=== PATIENT | male | born 1930 | race Caucasian/White ===

== ENCOUNTER 2022-01-08 11:05 | Emergency (ER) | payer MEDICARE, BC ==
[2022-01-08 11:31] VITALS: RESP 16
--- NOTE | 2022-01-08 11:32 | ED ---
General Adult HPI - General Stated complaint: Abnormal Labs Time Seen by Provider: 01/08/22 11:09 Source: patient, RN notes reviewed Mode of arrival: ambulatory Limitations: no limitations - History of Present Illness Initial comments: 89-year-old male present emergency department for evaluation of hyperkalemia. Patient was having routine labs. Patient states he is asymptomatic he has no complaints. Patient is here for further evaluation. - Related Data Allergies Allergy/AdvReac Type Severity Reaction Status Date / Time No Known Allergies Allergy Verified 01/08/22 11:31 Review of Systems ROS Statement: Those systems with pertinent positive or pertinent negative responses have been documented in the HPI. ROS Other: All systems not noted in ROS Statement are negative. General Exam Limitations: no limitations General appearance: alert, in no apparent distress Head exam: Present: atraumatic, normocephalic, normal inspection Respiratory exam: Present: normal lung sounds bilaterally. Absent: respiratory distress, wheezes, rales, rhonchi, stridor Cardiovascular Exam: Present: regular rate, normal rhythm, normal heart sounds. Absent: systolic murmur, diastolic murmur, rubs, gallop, clicks Course Vital Signs 01/08/22 11:27 Temperature 98.2 F Pulse Rate 80 Respiratory 16 Rate Blood Pressure 105/72 O2 Sat by Pulse 98 Oximetry Medical Decision Making - Medical Decision Making Repeat labs reveal any evidence of hyperkalemia. Patient discharged in stable condition return parameters were discussed. - Lab Data Result diagrams: 01/08/22 12:44 01/08/22 12:44 Lab Results 01/08/22 01/08/22 Range/Units 12:44 12:44 WBC 7.4 (3.8-10.6) k/uL RBC 4.22 L (4.30-5.90) m/uL Hgb 13.4 (13.0-17.5) gm/dL Hct 42.6 (39.0-53.0) % MCV 101.1 H (80.0-100.0) fL MCH 31.9 (25.0-35.0) pg MCHC 31.5 (31.0-37.0) g/dL RDW 13.8 (11.5-15.5) % Plt Count 170 (150-450) k/uL MPV 7.7 Macrocytosis Slight Sodium 137 (137-145) mmol/L Potassium 4.9 (3.5-5.1) mmol/L Chloride 104 (98-107) mmol/L Carbon Dioxide 23 (22-30) mmol/L Anion Gap 10 mmol/L BUN 47 H (9-20) mg/dL Creatinine 1.81 H (0.66-1.25) mg/dL Est GFR (CKD-EPI)AfAm 38 (>60 ml/min/1.73 sqM) Est GFR (CKD-EPI)NonAf 32 (>60 ml/min/1.73 sqM) Glucose 128 H (74-99) mg/dL Calcium 8.6 (8.4-10.2) mg/dL Magnesium 2.2 (1.6-2.3) mg/dL Total Bilirubin 0.9 (0.2-1.3) mg/dL AST 35 (17-59) U/L ALT 39 (4-49) U/L Alkaline Phosphatase 70 (38-126) U/L Total Protein 6.8 (6.3-8.2) g/dL Albumin 4.6 (3.5-5.0) g/dL Disposition Clinical Impression: Encounter for laboratory test Disposition: HOME SELF-CARE Condition: Stable Additional Instructions: Please return to the Emergency Department if symptoms worsen or any other concerns. Is patient prescribed a controlled substance at d/c from ED?: No Referrals: Nella Garcia DO [Primary Care Provider] - 1-2 days Time of Disposition: 13:28
[2022-01-08 13:02] LABS: HCT 42.6 % (39.0-53.0); HGB 13.4 gm/dL (13.0-17.5); MCH 31.9 pg (25.0-35.0); MCHC 31.5 g/dL (31.0-37.0); MCV 101.1 fL (80.0-100.0); Macrocytosis Slight; Mean Platelet Volume 7.7; Platelet Count 170 k/uL (150-450); RBC 4.22 m/uL (4.30-5.90); RDW 13.8 % (11.5-15.5); WBC 7.4 k/uL (3.8-10.6)
[2022-01-08 13:17] LABS: Albumin 4.6 g/dL (3.5-5.0); Calcium 8.6 mg/dL (8.4-10.2); Magnesium 2.2 mg/dL (1.6-2.3); Potassium 4.9 mmol/L (3.5-5.1); Total Bilirubin 0.9 mg/dL (0.2-1.3); Total Protein 6.8 g/dL (6.3-8.2)
[2022-01-08 14:02] VITALS: BP 186/78; PULSE 88; TEMP 98
== END 2022-01-08 14:01 | disposition home or self-care (01) ==
LOC: EC 11:05
DX: Z01.812 Encounter for preprocedural laboratory examination (principal)
CPT/HCPCS: 36415; 80053; 83735; 85027; 93005; 99285